=== PATIENT | male | born 1950 | race African-American/Black ===

== ENCOUNTER 2018-03-08 17:49 | Emergency (ER) | payer OTHER ==
[~2018-03-08] VITALS: Ht 172.7 cm; Wt 66.7 kg
[~2018-03-08 17:49] MED LIST: CHOLESTEROL MED; LISINOPRIL2.5 MG; MOTION RELIEF25 MG PO; NOVOLIN 70100 UNIT/1; ZOFRAN 4 MG ORAL4 MG PO
[2018-03-08] MEDS ORDERED: XIFAXAN550 M1 PO (19:01)
[2018-03-08] MEDS ORDERED: ATORVASTATIN CA40 MG PO (19:01)
[2018-03-08] MEDS ORDERED: IRON325 PO (19:02)
[2018-03-08] MEDS ORDERED: KEPPRA750 MG PO (19:02)
[2018-03-08] MEDS ORDERED: ZONISAMIDE 100100 M1 PO (19:02)
[2018-03-08] MEDS ORDERED: GENERLAC10 GM/15 M PO (19:02)
[2018-03-08] MEDS ORDERED: PROTONIX40 M1 PO (19:03)
[2018-03-08] MEDS ORDERED: FLOMAX0.4 MG PO (19:03)
[2018-03-08] MEDS ORDERED: LEVEMIR SUBQ (19:04)
[2018-03-08] MEDS ORDERED: NOVOLOG FL100 UNIT/M SUBQ (19:04)
[2018-03-08 19:30] VITALS: BP 145/73
== END 2018-03-08 19:30 | disposition home or self-care (01) ==
LOC: ER 17:49
DX: M25.551 Pain in right hip (principal); M25.561 Pain in right knee; K76.9 Liver disease, unspecified; I10 Essential (primary) hypertension; E11.9 Type 2 diabetes mellitus without complications; W18.30XA Fall on same level, unspecified, initial encounter; Y93.89 Activity, other specified; Y92.89 Other specified places as the place of occurrence of the external cause; Y99.8 Other external cause status